=== PATIENT | male | born 1975 | race Caucasian/White ===

== ENCOUNTER → 2020-09-04 | Outpatient (CLI) | payer OTHER ==
--- NOTE | 2020-09-04 13:32 | US ---
EXAMINATION TYPE: US venous doppler duplex LE RT DATE OF EXAM: 09/04/2020 1:13 PM COMPARISON: NONE CLINICAL HISTORY: M79.604 Pain in Right lower limb. Right leg pain SIDE PERFORMED: Right TECHNIQUE: The lower extremity deep venous system is examined utilizing real time linear array sonog elio with graded compression, doppler sonography and color-flow sonography. VESSELS IMAGED: Common Femoral Vein Deep Femoral Vein Greater Saphenous Vein * Femoral Vein Popliteal Vein Small Saphenous Vein * Proximal Calf Veins (* superficial vessels) Right Leg: Appears negative for DVT Right medial lower leg at area of concern: thrombus seen within superficial vessel from below knee to mid calf IMPRESSION: No evidence for DVT. Superficial thrombophlebitis.
== END | disposition home or self-care (01) ==
LOC: RADUSWWP 12:48
PROVIDERS: ATTEND Internal Medicine
DX: I80.9 Phlebitis and thrombophlebitis of unspecified site (principal)